=== PATIENT | female | born 1980 | race African-American/Black ===

== ENCOUNTER 2017-09-06 08:41 | Emergency (ER) | payer MEDICAID, OTHER ==
[~2017-09-06] VITALS: Ht 149.9 cm; Wt 81.8 kg
[~2017-09-06 08:41] MED LIST: ACET-2178
[2017-09-06 09:36] VITALS: BP 136/84
== END 2017-09-06 15:50 | disposition left against medical advice (07) ==
LOC: ER 09:29
DX: M54.9 Dorsalgia, unspecified (principal); Z53.21 Procedure and treatment not carried out due to patient leaving prior to being seen by health care provider

== ENCOUNTER 2024-04-06 16:54 | Emergency (ER) | payer MEDICAID, OTHER ==
[~2024-04-06] VITALS: Ht 149.9 cm; Wt 106.6 kg
[~2024-04-06 16:54] MED LIST changes: -ACET-2178; +TOPUD
[2024-04-06 17:05] VITALS: TEMP 98.7; O2SAT 98
[2024-04-06 17:45] VITALS: BP 176/92; PULSE 100; RESP 16
[2024-04-06] MEDS: KETOROLAC 30MG/ML VIAL IM ONE (17:45)
[2024-04-06] MEDS ORDERED: CYCL5TAB MT (18:04)
[2024-04-06] MEDS ORDERED: DICL75TA5 MT (18:04)
[2024-04-06] MEDS ORDERED: LIDO1ADH71 TOP (18:08)
== END 2024-04-06 18:16 | disposition home or self-care (01) ==
LOC: ER 16:54
DX: M54.2 Cervicalgia (principal); Z98.890 Other specified postprocedural states; Z90.710 Acquired absence of both cervix and uterus
CPT/HCPCS: 99283; 96372; J1885